=== PATIENT | male | born 1970 | race Caucasian/White ===

== ENCOUNTER 2017-02-20 20:30 | Emergency (ER) | payer BC ==
[~2017-02-20] VITALS: Ht 177.8 cm; Wt 79.6 kg
[~2017-02-20 20:30] MED LIST: CEPH500C PO; SULF800T23 PO
[2017-02-20 20:36] VITALS: TEMP 36.8; Ht 177.8 cm; Wt 79.6 kg
[2017-02-20] MEDS ORDERED: CEPHALEXIN 500MG HOME PACK 1 EA BTL PO ONE (22:00)
[2017-02-20] MEDS ORDERED: SEPTRA DS HOME PACK 1 EA VIAL PO ONE (22:00)
[2017-02-20] MEDS ORDERED: COMPOUNDED MED (22:02)
[2017-02-20] MEDS ORDERED: CEPH500C PO (22:09)
[2017-02-20] MEDS ORDERED: SULF800T23 PO (22:09)
[2017-02-20 22:26] VITALS: BP 131/92; PULSE 72; O2SAT 96
--- NOTE | 2017-02-21 00:49 | EMERGENCY ROOM VISIT NOTE ---
History First contact with patient: 21:11 Chief Complaint: WOUND INFECTION Stated Complaint: HEAT & SWELLING IN LF ELBOW History of Present Illness The patient is a 46 year old male who presents to the Emergency Room with complaints of left elbow pain. The patient also notes the following associated symptoms, redness, warmth. This started yesterday and is worsening. The patient has no relieving factors. He was concerned about an infected hair. Pt denies LOC, headache, fevers, chills, diaphoresis, visual changes, neck pain, chest pain, breathing difficulties, nausea, vomiting, abdominal pain, back pain , melena, hematochezia, urinary symptoms, numbness, weakness, lymphadenopathy, or other complaints. Review of Systems See HPI for pertinent positives and negatives. A total of ten systems were reviewed and were otherwise negative. Past Medical/Surgical History Medical Problems: (1) Colon cancer (2) Low testosterone in male Surgical Problems: (1) History of bowel resection Social History Smoking Status: Never Smoker Current/Historical Medications Scheduled Cephalexin Monohydrate (Keflex), 500 MG PO QID Sulfa/Trimethoprim (Bactrim Ds 800MG/160MG), 1 TAB PO BID Miscellaneous Medications [Compounded Med] Allergies Coded Allergies: No Known Allergies (Unverified Allergy, Mild, 02/21/08) Physical Exam Vital Signs Date Time Temp Pulse Resp B/P (MAP) Pulse Ox O2 Delivery O2 Flow Rate FiO2 02/20/17 22:26 72 18 131/92 96 Room Air 02/20/17 20:36 36.8 83 18 130/83 97 Room Air Physical Exam GENERAL: Awake, alert, well-appearing, in no distress HENT: Normocephalic, atraumatic. Oropharynx unremarkable. EYES: Normal conjunctiva. Sclera non-icteric. NECK: Supple. No nuchal rigidity. FROM. No JVD. RESPIRATORY: Clear to auscultation. CARDIAC: Regular rate, normal rhythm. Extremities warm and well perfused. Pulses equal. ABDOMEN: Soft, non-distended. No tenderness to palpation. No rebound or guarding. No masses. MUSCULOSKELETAL: Left proximal forearm redness, warmth and tenderness. No fluctuance or abscess. +cellulitis. Elbow joint is normal. Area over the olecranon is normal. No evidence of olecranon bursitis or septic joint. The remainder of the left upper extremity is normal. NEURO: Normal sensorium. No sensory or motor deficits noted. SKIN: No rash or jaundice noted. Medical Decision & Procedures Medications Administered Medications (Trade) Dose Ordered Sig/Traci Route Start Time Stop Time Status Last Admin Dose Admin Trimethoprim/ Sulfamethoxazole (Sulfameth/ Trimeth Ds 800/ 160MG Home Pack) 1 homepack UD ONCE PO 02/20/17 22:00 02/20/17 22:01 DC 02/20/17 22:15 1 HOMEPACK Cephalexin Monohydrate (Keflex 500MG Home Pack) 1 homepack NOW ONCE PO 02/20/17 22:00 02/20/17 22:01 DC 02/20/17 22:10 1 HOMEPACK Medical Decision Triage Nursing notes reviewed. The patient's presentation and history were concerning for arm swelling. Etiologies such as cellulitis, abscess, MRSA infection, dermatitis, drug eruption,necrotizing fasciitis, DVT as well as others were entertained. Physically this seems consistent with cellulitis. I do not detect any fluctuance that would suggest abscess. The patient has a history of a similar issue. At that point time he let it go for several days and then came to this Emergency Room and it was found that he had an abscess. This was staph aureus but methicillin sensitive. He states he was treated with Keflex and Bactrim and did very well. The patient stated he did not let this go as long because his history and the fact that he is traveling. I will treat the patient with Keflex and Bactrim. I discussed my reasoning with him and the patient felt very comfortable. If he worsens in any way or develops any sort of fluctuance he will come back. I did educate the patient.I gave my usual and customary discussion regarding this issue. Return instructions were outlined and the patient was discharged in stable condition. Impression Primary Impression: Cellulitis of left upper extremity Departure Information Dispostion Home / Self-Care Prescriptions Sulfa/Trimethoprim (Bactrim Ds 800MG/160MG) Tab 1 TAB PO BID, #18 TAB Prov: Juliocesar Wakefield MD 02/20/17 Cephalexin Monohydrate (Keflex) 500 Mg Cap 500 MG PO QID, #36 CAP Prov: Juliocesar Wakefield MD 02/20/17 Referrals No Doctor, Assigned (PCP) Patient Instructions My [facility]
== END 2017-02-20 22:15 | disposition home or self-care (01) ==
LOC: C.EDB 20:31 → C.EDC 22:15
DX: L03.113 Cellulitis of right upper limb (principal); Z85.038 Personal history of other malignant neoplasm of large intestine; Z90.49 Acquired absence of other specified parts of digestive tract